=== PATIENT | male | born 1985 | race American Indian/Alaskan Native ===

== ENCOUNTER 2017-10-30 11:38 | Emergency (ER) | payer SELFPAY ==
--- NOTE | 2017-10-30 12:55 | XRay Report ---
CHEST 2 VIEWS INDICATION: Chest pain, shortness of breath. COMPARISON: None similar at this institution. FINDINGS: PA and lateral chest radiographs demonstrate normal cardiomediastinal silhouette. Clear lungs. Intact bones. EKG leads. CONCLUSION: No acute disease in the chest. Thank you for the opportunity to participate in this patient's care.
[2017-10-30 13:33] LABS: Creatine Kinase MB 2.3 ng/mL (0.0-4.0); Hematocrit 41.4 % (35.5-45.6); Hemoglobin 14.2 gm/dl (11.8-15.2); Mean Corpuscular Volume 98 fl (84-94); Red Blood Count 4.24 M/mm3 (3.65-5.03)
[2017-10-30 13:34] LABS: BUN/Creatinine Ratio 11; Basophils % (Auto) 0.8 % (0.0-1.8); Blood Urea Nitrogen 9 mg/dL (9-20); Eosinophils # (Auto) 0.1 K/mm3 (0.0-0.4); Eosinophils % (Auto) 2.3 % (0.0-4.3); Hemolysis Index 14; Lymphocytes # (Auto) 1.6 K/mm3 (1.2-5.4); Lymphocytes % (Auto) 33.8 % (13.4-35.0); Mean Corpuscular HGB Conc 34 % (32-34); Mean Corpuscular Hemoglobin 34 pg (28-32); Mean Platelet Volume 7.8 fl (6-12); Monocytes # (Auto) 0.5 K/mm3 (0.0-0.8); Monocytes % (Auto) 9.9 % (0.0-7.3); Platelet Count 211 K/mm3 (140-440); Red Cell Distribution Width 12.4 % (13.2-15.2)
[2017-10-30] MEDS ORDERED: NACL 0.9% 1000 ML 1,000 ML IV ONE ×3 (13:34→15:20)
--- NOTE | 2017-10-30 13:40 | Emergency Department Report ---
ED Shortness of Breath HPI - General Chief Complaint: Dyspnea/Respdistress Stated Complaint: SOB Time Seen by Provider: 10/30/17 12:19 Source: patient, EMS Mode of arrival: Stretcher Limitations: No Limitations - History of Present Illness Initial Comments: 31-year-old male with no significant past medical history presents to the hospital complaining of 2 episodes of shortness of breath with associated palpitations that occurred prior to arrival. Patient smokes about 4 cigarettes daily and is to drink alcohol last night. He complains of chest tightness during these episodes. First episode lasted about an hour a second episode lasted 30 minutes prior to calling EMS. No symptoms reported at this time. Patient has nausea without vomiting or diaphoresis. Patient has been drinking a lot of alcohol the last 2 days but denies daily alcohol use or withdrawal symptoms. He has not been drinking a lot of water other fluids - Related Data Home Medications Medication Instructions Recorded Confirmed Last Taken No Known Home Medications [No 10/30/17 10/30/17 Unknown Reported Home Medications] Allergies Allergy/AdvReac Type Severity Reaction Status Date / Time No Known Allergies Allergy Unverified 10/30/17 12:33 ED Review of Systems ROS: Stated complaint: SOB Other details as noted in HPI Comment: All other systems reviewed and negative ED Past Medical Hx - Medications Home Medications: Home Medications Medication Instructions Recorded Confirmed Last Taken Type No Known Home Medications [No 10/30/17 10/30/17 Unknown History Reported Home Medications] ED Physical Exam - General Limitations: No Limitations - Other Other exam information: General: No limitations, patient is alert in no acute distress Head exam: Atraumatic, normocephalic Eyes exam: Normal appearance ENT: Moist mucous membrane, normal oropharynx Neck exam: Normal inspection, full range of motion, no meningismus nontender Respiratory exam: Clear to auscultation bilateral, no wheezes, rales, crackles Cardiovascular: Normal rate and rhythm, normal heart sounds Abdomen: Soft, nondistended, and nontender, with normal bowel sounds, no rebound, or guarding Extremity: Full range of motion normal inspection no deformity, no calf tenderness or edema Back: Normal Inspection, full range of motion, no tenderness Neurologic: Alert, oriented x3, cranial nerves intact, no motor or sensory deficit Psychiatric: normal mood Skin: Warm, dry, intact ED Course Vital Signs 10/30/17 10/30/17 10/30/17 12:20 12:33 13:23 Temperature 98.2 F Pulse Rate 90 90 Respiratory 16 18 Rate Blood Pressure 123/89 Blood Pressure [Left] O2 Sat by Pulse 100 100 Oximetry 10/30/17 10/30/17 10/30/17 15:30 16:30 17:11 Temperature 97.8 F Pulse Rate 63 56 L 61 Respiratory 18 18 16 Rate Blood Pressure Blood Pressure 134/82 126/80 129/73 [Left] O2 Sat by Pulse 100 100 100 Oximetry - Consultations Consultation #1: 10/30/17 15:08 P kayley/Dr Ricardo cardiology reviewed ekg and agree it is normal. ED Medical Decision Making - Lab Data Result diagrams: 10/30/17 13:01 10/30/17 13:01 - EKG Data -: EKG Interpreted by Me EKG shows normal: sinus rhythm, axis (qrs axis 82), QRS complexes (duration 113) , ST-T waves (mild diffuse st elevation, no mmi) Rate: normal (64) - EKG Data When compared to previous EKG there are: previous EKG unavailable - Radiology Data Radiology results: report reviewed ct angio chest CONCLUSION: No acute chest process or CT evidence of pulmonary embolism, as described. Thank you for the opportunity to participate in this patient's care. cxr: naf - Medical Decision Making Palpitations Normal sinus rhythm with regular rate and ED Significant positive orthostatic vital signs with heart rate increased from 64 to 106 with standing with stable blood pressure D-dimer elevated but CT angiogram negative without signs of pulmonary embolism or pericardial effusion EKG reviewed by cardiologists and normal without signs of pericarditis Patient denies chest pain at this time Palpitations are likely secondary to dehydration from 2 days of excessive alcohol use and poor fluid intake. Patient received 3 L of normal saline ED and will be discharged - Differential Diagnosis palpitations, arrhythmia, anemia, drug use, dehydration, PE Critical Care Time: No Critical care attestation.: If time is entered above; I have spent that time in minutes in the direct care of this critically ill patient, excluding procedure time. ED Disposition Clinical Impression: Intermittent palpitations, Dehydration, Orthostasis, Excessive drinking alcohol Disposition: DC-01 TO HOME OR SELFCARE Is pt being admited?: No Does the pt Need Aspirin: No Condition: Stable Instructions: Palpitations (ED), Dehydration (ED), At-Risk Alcohol Use (ED) Additional Instructions: Decrease your alcohol intake. Drink plenty of water and other fluids besides alcohol for hydration. Return if symptoms worsen. Referrals: RYAN RYAN MD [Staff Physician] - 3-5 Days (Primary care doctor) [facility] [Provider Group] - 3-5 Days (Primary care clinic) Time of Disposition: 17:10
[2017-10-30 13:52] LABS: Free T4 (Free Thyroxine) 1.41 ng/dL (0.76-1.46)
[2017-10-30] MEDS ORDERED: NACL ONE (13:53)
--- NOTE | 2017-10-30 14:42 | Cat Scan Report ---
CTA CHEST INDICATION: Shortness of breath, palpitations, elevated d-dimer. COMPARISON: None similar. FINDINGS: Chest CTA performed following intravenous administration of 100 cc of Omnipaque 350. Rotational MIP's also obtained. Normal heart size. No effusions. No aortic aneurysm, dissection or suspicious pulmonary arterial filling defects. No size significant adenopathy. Normal airway. Unremarkable thyroid. Clear lungs. Nonspecific distal esophageal wall prominence/thickening, not excluded for gastroesophageal reflux and/or hiatal hernia, amongst others. Images through included upper abdomen demonstrates left hepatic lobe tip extending into the left upper quadrant. Unremarkable bones. CONCLUSION: No acute chest process or CT evidence of pulmonary embolism, as described. Thank you for the opportunity to participate in this patient's care.
[2017-10-30 15:18] LABS: Bilirubin,Urine NEG (Negative); Blood,Urine NEG (Negative); Color,Urine Yellow (Yellow); Protein,Urine <15 mg/dL mg/dL (Negative); Urobilinogen,Urine < 2.0 mg/dL (<2.0); WBC,Urine < 1.0 /HPF (0.0-6.0)
[2017-10-30 15:38] LABS: Benzodiazepines Screen,Urine PRESUMPTIVE NEGATIVE; Cannabinoid Screen,Urine PRESUMPTIVE NEGATIVE; Cocaine Screen,Urine PRESUMPTIVE NEGATIVE; Methadone Screen,Urine PRESUMPTIVE NEGATIVE; Opiate Screen,Urine PRESUMPTIVE NEGATIVE
[2017-10-30 15:44] LABS: Amphetamine Screen,Urine PRESUMPTIVE POSITIVE
[2017-10-30 17:12] VITALS: BP 129/73
== END 2017-10-30 17:11 | disposition home or self-care (01) ==
LOC: ED 11:38
DX: E86.0 Dehydration (principal); F10.99 Alcohol use, unspecified with unspecified alcohol-induced disorder; R00.2 Palpitations; R06.02 Shortness of breath; Z79.899 Other long term (current) drug therapy
CPT/HCPCS: 36415; 71046; 71275; 80048; 80307; 81001; 82550; 82553; 84439; 84443; 84484; 85025; 85379; 93005; 93010; 96360; 96361; 99285; G0480; J7030; Q9967; 80320

== ENCOUNTER 2019-09-20 19:05 | Emergency (ER) | payer SELFPAY ==
--- NOTE | 2019-09-20 19:12 | Emergency Department Report ---
Blank Doc - Documentation Documentation: 33-year-old male that presents with SOB. Denies any chest pain. HX of asthma. This initial assessment/diagnostic orders/clinical plan/treatment(s) is/are subject to change based on patient's health status, clinical progression and re- assessment by fellow clinical providers in the ED. Further treatment and workup at subsequent clinical providers discretion. Patient/guardians urged not to elope from the ED as their condition may be serious if not clinically assessed and managed. Initial orders include: 1- Patient sent to [facility] for further evaluation and treatment 2- CXR
[2019-09-20 19:15] VITALS: BP 167/101
--- NOTE | 2019-09-20 19:45 | XRay Report ---
CHEST 2 VIEWS INDICATION / CLINICAL INFORMATION: MAIN: sob c/o back pain, blurred vision, and difficulty breathing since this morning. COMPARISON: 11/09/2017 FINDINGS: SUPPORT DEVICES: None. HEART / MEDIASTINUM: No significant abnormality. LUNGS / PLEURA: No significant pulmonary or pleural abnormality. .No pneumothorax. ADDITIONAL FINDINGS: No significant additional findings. IMPRESSION: 1. No acute findings. Signer Name: Fadi Starkey MD Signed: 09/20/2019 7:40 PM Workstation Name: [id number]
--- NOTE | 2019-09-20 23:31 | Emergency Department Report ---
ED General Adult HPI - General Chief complaint: Dyspnea/Respdistress Stated complaint: JOSEPHINE/SOB Time Seen by Provider: 09/20/19 19:11 Source: patient Mode of arrival: Ambulatory Limitations: No Limitations - History of Present Illness Initial comments: Patient is a 33-year-old male that presents emergency room with complaints of shortness of breath, cough. Patient states he started with a cough started this morning. Patient states his shortness of breath has resolved. Patient states his cough is intermittent. Patient states is a dry cough. Patient states he does not have any mucus production. Patient denies fever and chills. Patient states he did not get a flu shot this year. Patient denies nausea vomiting. Patient denies chest pain. Patient states he is also having back pain x1 month. Patient states is in his lower back pain and is a tightness. Patient states his pain is a 0 out of 10 at this time. Patient states it is intermittent and is never higher than a 3 out of 10 for the pain. Patient states he has not seen an orthopedist or primary care for his back pain. Patient states he had blurry vision this morning but it has resolved. Patient states blurry vision lasted for about 2 minutes. -: Sudden Location: back Radiation: non-radiation Severity scale (0 -10): 0 Consistency: intermittent, now resolved Improves with: rest Worsens with: movement Associated Symptoms: cough, shortness of breath Treatments Prior to Arrival: none - Related Data Previous Rx's Medication Instructions Recorded Last Taken Type DOXYCYCLINE Hyclate [Vibramycin 100 mg PO Q12HR 10 Days #20 capsule 09/20/19 Unknown Rx CAP] methylPREDNISolone [Medrol 4MG 4 mg PO DAILY 6 Days #1 tab.ds.pk 09/20/19 Unknown Rx DOSEPAK (21 tabs)] Allergies Allergy/AdvReac Type Severity Reaction Status Date / Time No Known Allergies Allergy Unverified 10/30/17 12:33 ED Review of Systems ROS: Stated complaint: JOSEPHINE/SOB Other details as noted in HPI Constitutional: denies: chills, fever Eyes: denies: eye pain, eye discharge, vision change ENT: denies: ear pain, throat pain, epistaxis Respiratory: cough, shortness of breath. denies: wheezing Cardiovascular: denies: chest pain, palpitations Endocrine: no symptoms reported Gastrointestinal: denies: abdominal pain, nausea, diarrhea Genitourinary: denies: urgency, dysuria Musculoskeletal: back pain. denies: joint swelling, arthralgia Skin: denies: rash, lesions Neurological: denies: headache, weakness, paresthesias Psychiatric: denies: anxiety, depression Hematological/Lymphatic: denies: easy bleeding, easy bruising ED Past Medical Hx - Past Medical History Previous Medical History?: Yes Hx Asthma: Yes - Surgical History Past Surgical History?: No - Family History Family history: no significant - Social History Smoking Status: Current Every Day Smoker Substance Use Type: None - Medications Home Medications: Home Medications Medication Instructions Recorded Confirmed Last Taken Type DOXYCYCLINE Hyclate [Vibramycin 100 mg PO Q12HR 10 Days #20 capsule 09/20/19 Unknown Rx CAP] methylPREDNISolone [Medrol 4MG 4 mg PO DAILY 6 Days #1 tab.ds.pk 09/20/19 Unknown Rx DOSEPAK (21 tabs)] ED Physical Exam - General Limitations: No Limitations General appearance: alert, in no apparent distress - Head Head exam: Present: atraumatic, normocephalic - Eye Eye exam: Present: normal appearance - ENT ENT exam: Present: mucous membranes moist - Neck Neck exam: Present: normal inspection - Respiratory Respiratory exam: Present: normal lung sounds bilaterally. Absent: respiratory distress, wheezes, rales - Cardiovascular Cardiovascular Exam: Present: regular rate, normal rhythm. Absent: systolic murmur, diastolic murmur, rubs, gallop - GI/Abdominal GI/Abdominal exam: Present: soft, normal bowel sounds. Absent: distended, tenderness, guarding - Rectal Rectal exam: Present: deferred - Extremities Exam Extremities exam: Present: normal inspection, full ROM, normal capillary refill. Absent: tenderness, pedal edema, joint swelling, calf tenderness - Back Exam Back exam: Present: normal inspection, full ROM. Absent: tenderness, CVA tenderness (R), CVA tenderness (L), muscle spasm, paraspinal tenderness, vertebral tenderness, rash noted - Neurological Exam Neurological exam: Present: alert, oriented X3 - Psychiatric Psychiatric exam: Present: normal affect, normal mood - Skin Skin exam: Present: warm, dry, intact, normal color. Absent: rash ED Course Vital Signs 09/20/19 09/21/19 19:14 00:05 Temperature 98.3 F Pulse Rate 66 74 Respiratory 20 16 Rate Blood Pressure 167/101 O2 Sat by Pulse 99 98 Oximetry - Reevaluation(s) Reevaluation #1: I discussed all results and clinical findings with patient. I discussed plan of care with patient. Patient agrees with plan of care. Patient is stable for discharge. Patient will be discharged home. Patient given discharge instructions. Patient voiced understanding of discharge instructions. 09/20/19 23:30 ED Medical Decision Making - Medical Decision Making Patient is a 33-year-old male who presents to the emergency room with complaints of cough, shortness of breath, back pain. Patient's clinical findings are consistent with bronchitis. Patient has a history of asthma. Patient's back pain has been going on for 1 month. Patient's clinical findings for his back pain are consistent with a back strain. Patient instructed to follow-up with orthopedist and his primary care. For the patient's bronchitis patient was given antibiotics and steroids. Patient stable for discharge. Patient discharged home. - Differential Diagnosis Bronchitis, cough, URI, asthma, back strain, back pain Critical care attestation.: If time is entered above; I have spent that time in minutes in the direct care of this critically ill patient, excluding procedure time. ED Disposition Clinical Impression: Bronchitis, SOB (shortness of breath) Back pain Qualifiers: Back pain location: low back pain Chronicity: acute Back pain laterality: midline Sciatica presence: without sciatica Qualified Code(s): M54.5 - Low back pain Back strain Qualifiers: Encounter type: initial encounter Qualified Code(s): S39.012A - Strain of muscle, fascia and tendon of lower back, initial encounter Disposition: - TO HOME OR SELFCARE Is pt being admited?: No Does the pt Need Aspirin: No Condition: Stable Instructions: Muscle Strain (ED), Acute Bronchitis (ED), Low Back Strain (ED), Core Strengthening Exercises (GEN) Additional Instructions: Patient to follow-up with primary care in 2 to 3 days. Patient to follow-up with Ortho in 2 to 3 days. Patient to rest. Patient to increase water. Patient to avoid strenuous exercise or heavy lifting until cleared by Ortho. Patient to take Tylenol or ibuprofen as needed for pain. Patient to take meds as directed. Patient to return to the ER if condition worsens, changes or new symptoms arise. Prescriptions: methylPREDNISolone [Medrol 4MG DOSEPAK (21 tabs)] 4 mg PO DAILY 6 Days #1 tab.ds.pk DOXYCYCLINE Hyclate [Vibramycin CAP] 100 mg PO Q12HR 10 Days #20 capsule Referrals: PRIMARY CARE, [Primary Care Provider] - 2-3 Days FRANKIE SAGASTUME MD [Staff Physician] - 2-3 Days JUVENTINO PACHECO MD [Staff Physician] - 2-3 Days Time of Disposition: 23:34
== END 2019-09-21 00:05 | disposition home or self-care (01) ==
LOC: ED 19:05
DX: S39.012A Strain of muscle, fascia and tendon of lower back, initial encounter (principal); J40 Bronchitis, not specified as acute or chronic; Z87.09 Personal history of other diseases of the respiratory system; F17.200 Nicotine dependence, unspecified, uncomplicated; Z79.899 Other long term (current) drug therapy; X58.XXXA Exposure to other specified factors, initial encounter; Y93.89 Activity, other specified; Y92.89 Other specified places as the place of occurrence of the external cause; Y99.8 Other external cause status
CPT/HCPCS: 71046